=== PATIENT | female | born 1965 | race Caucasian/White ===

== ENCOUNTER 2022-08-10 14:44 | Inpatient (IN) | payer OTHER ==
[~2022-08-10] VITALS: Ht 152.4 cm; Wt 77.6 kg
[~2022-08-10 14:44] MED LIST: DSS100 PO; ERGO500014 PO; LIDO700A15 TD; PANT-31 PO
[2022-08-10 16:00] VITALS: BP 142/85
[2022-08-10] MEDS ORDERED: POLYETHYLENE GLYCOL 3350 17 GM PACKET PO PRN (16:30)
[2022-08-10] MEDS ORDERED: LIDOCAINE 5% TRANSDERMAL PATCH TD PRN (16:30)
[2022-08-10] MEDS: ACETAMINOPHEN 325 MG TABLET PO SCH ×2 (17:30→23:43)
[2022-08-10] MEDS ORDERED: MELATONIN 5 MG TABLET PO PRN (19:15)
[2022-08-10] MEDS: BACLOFEN 10 MG TABLET PO SCH (20:56)
[2022-08-10] MEDS: NITROFURANTOIN MONOHYD/M-CRYST 100 MG CAPSULE [MACROBID] PO SCH (20:56)
[2022-08-10 21:00] VITALS: BP 129/81
[2022-08-10] MEDS: ETHYL ALCOHOL 62% ANTISEPTIC NASAL SANITIZER 0.6 ML AMPUL NASAL SCH (21:08)
[2022-08-11] MEDS: OxyCODONE HCL 5 MG IR TABLET PO PRN (03:03)
[2022-08-11 07:34] LABS: BASOPHILS % (AUTO) 1.1 % (0.0-2.0); HEMATOCRIT 39.4 % (36-46); LYMPHOCYTES # (AUTO) 0.7 K/uL (1.0-4.8); LYMPHOCYTES % (AUTO) 14.8 % (22.0-44.0); MEAN CORPUSCULAR HGB CONC 33.1 G/dL (31.0-37.0); MEAN CORPUSCULAR VOLUME 88 fL (80-100); MONOCYTES # (AUTO) 0.6 K/uL (0.1-1.0); MONOCYTES % (AUTO) 11.5 % (2.0-9.0); NEUTROPHILS # (AUTO) 3.4 K/uL (1.8-7.7); NEUTROPHILS % (AUTO) 68.6 % (40.0-70.0); PLATELET COUNT (AUTO) 285 K/uL (150-450); RED CELL DISTRIBUTION WIDTH 14.5 % (11.5-14.5)
[2022-08-11 07:50] LABS: ALANINE AMINOTRANSFERASE 22 U/L (12-78); ALBUMIN 3.6 g/dL (3.4-5.0); ALKALINE PHOSPHATASE 72 U/L (46-116); ANION GAP 8 mmol/L (8-16); ASPARTATE AMINOTRANSFERASE 15 U/L (15-37); BILIRUBIN,TOTAL 0.3 mg/dL (0.1-1.0); CALCIUM, TOTAL 9.5 mg/dL (8.8-10.5); CARBON DIOXIDE 27 mmol/L (22-29); CHLORIDE 103 mmol/L (98-107); CREATININE 0.64 mg/dL (0.60-1.30); GLOMERULAR FILTR. RATE CALC > 60 mL/min (>60); GLUCOSE,RANDOM 111 mg/dL (70-110); POTASSIUM 4.1 mmol/L (3.5-5.1); SODIUM SERUM 138 mmol/L (136-145); TOTAL PROTEIN, SERUM 7.5 g/dL (6.4-8.2); UREA NITROGEN, BLOOD 15 mg/dL (7-18)
[2022-08-11 08:30] VITALS: BP 109/59
[2022-08-11] MEDS: ETHYL ALCOHOL 62% ANTISEPTIC NASAL SANITIZER 0.6 ML AMPUL NASAL SCH ×2 (08:50→21:31)
[2022-08-11] MEDS: ACETAMINOPHEN 325 MG TABLET PO SCH ×3 (08:50→23:16)
[2022-08-11] MEDS: BACLOFEN 10 MG TABLET PO SCH ×3 (08:51→21:32)
[2022-08-11] MEDS: NITROFURANTOIN MONOHYD/M-CRYST 100 MG CAPSULE [MACROBID] PO SCH ×2 (08:51→21:31)
[2022-08-11] MEDS: CHOLECALCIFEROL (VIT D3) 2,000 UNITS [50 MCG] TABLET PO SCH (08:52)
[2022-08-11] MEDS: ENOXAPARIN SODIUM 40 MG/0.4 ML PF SYRINGE SQ SCH (08:53)
[2022-08-11] MEDS: IBUPROFEN 600 MG TABLET PO PRN (13:39)
[2022-08-11 19:47] VITALS: BP 131/76
[2022-08-11] MEDS: SENNOSIDES 8.6 MG TABLET PO PRN (21:31)
[2022-08-11] MEDS: DIMETHYL FUMARATE 240 MG PO SCH (21:32)
[2022-08-12 08:02] VITALS: BP 126/79
[2022-08-12] MEDS: ACETAMINOPHEN 325 MG TABLET PO SCH ×3 (09:04→23:51)
[2022-08-12] MEDS: ETHYL ALCOHOL 62% ANTISEPTIC NASAL SANITIZER 0.6 ML AMPUL NASAL SCH ×2 (09:04→21:15)
[2022-08-12] MEDS: ENOXAPARIN SODIUM 40 MG/0.4 ML PF SYRINGE SQ SCH (09:05)
[2022-08-12] MEDS: BACLOFEN 10 MG TABLET PO SCH ×3 (09:05→21:16)
[2022-08-12] MEDS: NITROFURANTOIN MONOHYD/M-CRYST 100 MG CAPSULE [MACROBID] PO SCH ×2 (09:05→21:15)
[2022-08-12] MEDS: DIMETHYL FUMARATE 240 MG PO SCH ×2 (09:05→21:19)
[2022-08-12] MEDS: CHOLECALCIFEROL (VIT D3) 2,000 UNITS [50 MCG] TABLET PO SCH (09:05)
[2022-08-12 20:00] VITALS: BP 104/59
[2022-08-13 08:05] VITALS: BP 118/62
[2022-08-13] MEDS: ENOXAPARIN SODIUM 40 MG/0.4 ML PF SYRINGE SQ SCH (08:58)
[2022-08-13] MEDS: ACETAMINOPHEN 325 MG TABLET PO SCH ×3 (09:02→23:22)
[2022-08-13] MEDS: BACLOFEN 10 MG TABLET PO SCH ×3 (09:03→20:35)
[2022-08-13] MEDS: ETHYL ALCOHOL 62% ANTISEPTIC NASAL SANITIZER 0.6 ML AMPUL NASAL SCH ×2 (09:03→20:36)
[2022-08-13] MEDS: DIMETHYL FUMARATE 240 MG PO SCH ×2 (09:04→20:34)
[2022-08-13] MEDS: CHOLECALCIFEROL (VIT D3) 2,000 UNITS [50 MCG] TABLET PO SCH (09:05)
[2022-08-13 21:00] VITALS: BP 116/65
[2022-08-14 08:00] VITALS: BP 141/78
[2022-08-14] MEDS: ETHYL ALCOHOL 62% ANTISEPTIC NASAL SANITIZER 0.6 ML AMPUL NASAL SCH ×2 (08:57→20:28)
[2022-08-14] MEDS: DIMETHYL FUMARATE 240 MG PO SCH ×2 (08:57→20:28)
[2022-08-14] MEDS: ACETAMINOPHEN 325 MG TABLET PO SCH ×3 (08:57→23:58)
[2022-08-14] MEDS: ENOXAPARIN SODIUM 40 MG/0.4 ML PF SYRINGE SQ SCH (08:58)
[2022-08-14] MEDS: BACLOFEN 10 MG TABLET PO SCH ×3 (08:58→20:29)
[2022-08-14] MEDS: CHOLECALCIFEROL (VIT D3) 2,000 UNITS [50 MCG] TABLET PO SCH (08:58)
[2022-08-14] MEDS: OxyCODONE HCL 5 MG IR TABLET PO PRN (12:58)
[2022-08-14 20:20] VITALS: BP 125/67
[2022-08-14] MEDS: IBUPROFEN 600 MG TABLET PO PRN (20:38)
[2022-08-15 08:02] VITALS: BP 119/70
[2022-08-15] MEDS: ACETAMINOPHEN 325 MG TABLET PO SCH ×2 (08:29→16:37)
[2022-08-15] MEDS: ENOXAPARIN SODIUM 40 MG/0.4 ML PF SYRINGE SQ SCH (08:29)
[2022-08-15] MEDS: BACLOFEN 10 MG TABLET PO SCH ×3 (08:29→20:28)
[2022-08-15] MEDS: CHOLECALCIFEROL (VIT D3) 2,000 UNITS [50 MCG] TABLET PO SCH (08:29)
[2022-08-15] MEDS: DIMETHYL FUMARATE 240 MG PO SCH ×2 (08:59→20:28)
[2022-08-15] MEDS: HYDROCODONE/ACETAMINOPHEN 5-325 MG TABLET PO SCH (09:00)
[2022-08-15] MEDS: ETHYL ALCOHOL 62% ANTISEPTIC NASAL SANITIZER 0.6 ML AMPUL NASAL SCH ×2 (09:02→20:27)
[2022-08-15 16:42] LABS: APPEARANCE,URINE CLEAR (CLEAR); BILIRUBIN,URINE NEGATIVE (NEGATIVE); GLUCOSE, URINE (UA) NEGATIVE (NEGATIVE); KETONES,URINE NEGATIVE (NEGATIVE); LEUKOCYTE ESTERASE ,URINE MODERATE (NEGATIVE); NITRATE,URINE NEGATIVE (NEGATIVE); OCCULT BLOOD,URINE NEGATIVE (NEGATIVE); PROTEIN,URINE NEGATIVE (NEGATIVE); SPECIFIC GRAVITIY, URINE 1.027 (1.003-1.030); UROBILINOGEN,URINE <=1.0 mg/dL (<=1.0)
[2022-08-15 17:06] LABS: BACTERIA,URINE Few /HPF (None Seen); RBC,URINE 0-2 /HPF (0-2); SQUAMOUS EPITHELIAL CELL,UR Few /LPF (None Seen)
[2022-08-15 20:04] VITALS: BP 121/66
[2022-08-16] MEDS: ACETAMINOPHEN 325 MG TABLET PO SCH ×3 (00:03→16:51)
[2022-08-16 08:01] VITALS: BP 135/78
[2022-08-16] MEDS: CHOLECALCIFEROL (VIT D3) 2,000 UNITS [50 MCG] TABLET PO SCH (08:51)
[2022-08-16] MEDS: ENOXAPARIN SODIUM 40 MG/0.4 ML PF SYRINGE SQ SCH (08:51)
[2022-08-16] MEDS: BACLOFEN 10 MG TABLET PO SCH ×3 (08:51→20:15)
[2022-08-16] MEDS: HYDROCODONE/ACETAMINOPHEN 5-325 MG TABLET PO SCH (08:51)
[2022-08-16] MEDS: ETHYL ALCOHOL 62% ANTISEPTIC NASAL SANITIZER 0.6 ML AMPUL NASAL SCH ×2 (08:52→20:21)
[2022-08-16] MEDS: DIMETHYL FUMARATE 240 MG PO SCH ×2 (08:52→20:17)
[2022-08-16] MEDS: OxyCODONE HCL 5 MG IR TABLET PO PRN (13:25)
[2022-08-16] MEDS: SENNOSIDES 8.6 MG TABLET PO PRN (20:15)
[2022-08-16 20:31] VITALS: BP 122/78
[2022-08-17] MEDS: ACETAMINOPHEN 325 MG TABLET PO SCH ×4 (02:16→23:49)
[2022-08-17 08:51] VITALS: BP 141/83
[2022-08-17] MEDS: ETHYL ALCOHOL 62% ANTISEPTIC NASAL SANITIZER 0.6 ML AMPUL NASAL SCH ×2 (08:55→20:08)
[2022-08-17] MEDS: ENOXAPARIN SODIUM 40 MG/0.4 ML PF SYRINGE SQ SCH (08:55)
[2022-08-17] MEDS: CHOLECALCIFEROL (VIT D3) 2,000 UNITS [50 MCG] TABLET PO SCH (08:56)
[2022-08-17] MEDS: BACLOFEN 10 MG TABLET PO SCH ×3 (08:56→20:06)
[2022-08-17] MEDS: HYDROCODONE/ACETAMINOPHEN 5-325 MG TABLET PO SCH (08:56)
[2022-08-17] MEDS: DIMETHYL FUMARATE 240 MG PO SCH ×2 (09:26→20:06)
[2022-08-17] MEDS: IBUPROFEN 600 MG TABLET PO PRN (14:52)
[2022-08-17 20:03] VITALS: BP 124/72
[2022-08-18 08:15] VITALS: BP 132/89
[2022-08-18] MEDS: ACETAMINOPHEN 325 MG TABLET PO SCH ×2 (08:28→16:38)
[2022-08-18] MEDS: ETHYL ALCOHOL 62% ANTISEPTIC NASAL SANITIZER 0.6 ML AMPUL NASAL SCH ×2 (08:28→20:23)
[2022-08-18] MEDS: BACLOFEN 10 MG TABLET PO SCH ×3 (08:29→20:23)
[2022-08-18] MEDS: CHOLECALCIFEROL (VIT D3) 2,000 UNITS [50 MCG] TABLET PO SCH (08:29)
[2022-08-18] MEDS: HYDROCODONE/ACETAMINOPHEN 5-325 MG TABLET PO SCH (08:29)
[2022-08-18] MEDS: ENOXAPARIN SODIUM 40 MG/0.4 ML PF SYRINGE SQ SCH (08:30)
[2022-08-18] MEDS: DIMETHYL FUMARATE 240 MG PO SCH ×2 (10:18→20:23)
[2022-08-18] MEDS: OxyCODONE HCL 5 MG IR TABLET PO PRN (13:56)
[2022-08-18 20:06] VITALS: BP 118/78
[2022-08-19] MEDS: ACETAMINOPHEN 325 MG TABLET PO SCH ×3 (00:30→17:33)
[2022-08-19 08:05] VITALS: BP 133/60
[2022-08-19] MEDS: ETHYL ALCOHOL 62% ANTISEPTIC NASAL SANITIZER 0.6 ML AMPUL NASAL SCH ×2 (09:31→20:26)
[2022-08-19] MEDS: DIMETHYL FUMARATE 240 MG PO SCH ×2 (09:31→20:26)
[2022-08-19] MEDS: CHOLECALCIFEROL (VIT D3) 2,000 UNITS [50 MCG] TABLET PO SCH (09:32)
[2022-08-19] MEDS: HYDROCODONE/ACETAMINOPHEN 5-325 MG TABLET PO SCH (09:32)
[2022-08-19] MEDS: BACLOFEN 10 MG TABLET PO SCH ×3 (09:32→20:26)
[2022-08-19] MEDS: ENOXAPARIN SODIUM 40 MG/0.4 ML PF SYRINGE SQ SCH (09:33)
[2022-08-19 20:30] VITALS: BP 125/73
[2022-08-19] MEDS ORDERED: DIME240C2 PO (21:05)
[2022-08-20] MEDS: ACETAMINOPHEN 325 MG TABLET PO SCH ×2 (00:30→08:30)
[2022-08-20] MEDS: ENOXAPARIN SODIUM 40 MG/0.4 ML PF SYRINGE SQ SCH (08:29)
[2022-08-20] MEDS: HYDROCODONE/ACETAMINOPHEN 5-325 MG TABLET PO SCH (08:29)
[2022-08-20] MEDS: BACLOFEN 10 MG TABLET PO SCH (08:29)
[2022-08-20 08:30] VITALS: BP 134/72
[2022-08-20] MEDS: ETHYL ALCOHOL 62% ANTISEPTIC NASAL SANITIZER 0.6 ML AMPUL NASAL SCH (08:30)
[2022-08-20] MEDS: CHOLECALCIFEROL (VIT D3) 2,000 UNITS [50 MCG] TABLET PO SCH (08:30)
[2022-08-20] MEDS: DIMETHYL FUMARATE 240 MG PO SCH (08:30)
[2022-08-20] MEDS ORDERED: POLY17PO47 PO (10:17)
[2022-08-20] MEDS ORDERED: HYDR-4723 PO (10:17)
[2022-08-20] MEDS ORDERED: FOLI-130 PO (10:17)
[2022-08-20] MEDS ORDERED: ACET325T51 PO (10:17)
[2022-08-20] MEDS ORDERED: BACL10TA PO (10:17)
[2022-08-20] MEDS ORDERED: SENN-187 PO (10:17)
[2022-08-20] MEDS ORDERED: CHOL200026 PO (10:25)
[2022-08-20] MEDS ORDERED: ASPI-1444 PO (10:25)
== END 2022-08-20 13:50 | disposition home health service (06) | DRG 536 ==
LOC: 2WR 15:49
PROVIDERS: ADMIT Physical Medicine & Rehabilitation; ATTEND Physical Medicine & Rehabilitation
DX: S72.144A Nondisplaced intertrochanteric fracture of right femur, initial encounter for closed fracture (principal); N39.0 Urinary tract infection, site not specified; B96.20 Unspecified Escherichia coli [E. coli] as the cause of diseases classified elsewhere; E66.9 Obesity, unspecified; F43.20 Adjustment disorder, unspecified; G35 Multiple sclerosis; G47.33 Obstructive sleep apnea (adult) (pediatric); M21.371 Foot drop, right foot; W18.39XA Other fall on same level, initial encounter; E55.9 Vitamin D deficiency, unspecified; S76.811A Strain of other specified muscles, fascia and tendons at thigh level, right thigh, initial encounter; M79.604 Pain in right leg; M17.11 Unilateral primary osteoarthritis, right knee; N31.9 Neuromuscular dysfunction of bladder, unspecified; Z74.1 Need for assistance with personal care; Z79.01 Long term (current) use of anticoagulants; Z87.440 Personal history of urinary (tract) infections; Y93.89 Activity, other specified; Y92.89 Other specified places as the place of occurrence of the external cause; Y99.8 Other external cause status; Z68.33 Body mass index [BMI] 33.0-33.9, adult; Z79.82 Long term (current) use of aspirin
CPT/HCPCS: 80053; 81001; 82306; 85025; 87081; 87086; 87186; 93970; 97110; 97112; 97116; 97162; 97166; 97530; 97535; 99366; J1650; Q9967